=== PATIENT | female | born 1985 | race Caucasian/White ===

== ENCOUNTER 2016-05-02 05:00 | Inpatient (IN) | payer SELFPAY ==
[2016-05-02] MEDS: RINGERS SOLUTION,LACTATED 1,000 ML IV PRN ×3 (05:25→07:45)
[2016-05-02] MEDS ORDERED: OXYTOCIN 20 UNITS in RINGERS SOLUTION,LACTATED 1,000 ML IV ONE (05:32)
[2016-05-02] MEDS ORDERED: ceFAZolin SODIUM 2 GM in DEXTROSE 5 % IN WATER 100 ML IV ONE ×2 (07:00)
[2016-05-02] MEDS ORDERED: ceFAZolin SODIUM 2 GM in DEXTROSE 5 % IN WATER 50 ML IV ONE ×2 (07:30)
[2016-05-02] MEDS ORDERED: CALCIUM CARBONATE 500 MG TAB.CHEW PO PRN (09:14)
[2016-05-02] MEDS ORDERED: oxyCODONE HCL/ACETAMINOPHEN 1 TAB TABLET PO PRN (09:14)
[2016-05-02] MEDS ORDERED: ONDANSETRON HCL/PF 2 MG/ML VIAL IV PRN (09:14)
[2016-05-02] MEDS ORDERED: SIMETHICONE 80 MG TAB.CHEW PO PRN (09:14)
[2016-05-02] MEDS ORDERED: SENNOSIDES 8.6 MG TABLET PO PRN (09:14)
[2016-05-02] MEDS ORDERED: BISACODYL 10 MG SUPP.RECT RC PRN (09:14)
--- NOTE | 2016-05-02 09:17 | OR ---
Operative Report - Dictated Report Narrative: Indication: 30 year old 6 para 4 at 39-1/7 weeks with prior section desires repeat section Pre Operative Diagnosis: 39-1/7 week intrauterine , prior section 2 Post Operative Diagnosis: Same. Procedure: Repeat low transverse section. Surgeon: Giovana Pacheco DO Cartographic Engineer: none Anesthesia: Spinal, TAP block Estimated Blood Loss: 400 mL Urine Output: 525 mL clear urine Fluids Replacement: 1500 mL Drains: Diaz to gravity Surgical Complications: None Specimens: Placenta to freezer Findings: Female in cephalic presentation born at 0819 on 05/02/2018 with Apgars 9 and 9 weighing 3463 g. Nuchal cord 2. Normal uterus, tubes, ovaries Technique: The patient was taken to the operating room and placed in dorsal supine position with a left lateral tilt. After adequate spinal anesthesia, diaz catheter inserted, SCDs placed, and 2 g of Ancef given preoperatively, the abdominal cavity was entered using sharp and blunt dissection. Two rolled laps were placed in the pericolic gutters on either side of the uterus. A transverse incision was made in the lower uterine segment and extended laterally and upwardly with digital traction. Clear fluid was noted upon amniotomy. The was delivered easily. The cord was clamped and cut and was handed off to awaiting peditrician. The placenta was allowed to deliver spontaneously. The uterus was cleared of clot and debris. Uterine incision was closed with 0 Vicryl using a running stitch. A second imbricating layer was placed. Excellent hemostasis was noted. The rolled laps were removed from the abdominal cavitiy. The peritoneum was closed with a running 3- 0 Monocryl. The same suture was used to approximate the rectus and pyramidalis muscles. The fascia was closed with a running 0 Vicryl. The subcutaneous layer was closed with a running 3-0 Monocryl. The same suture was used to approximate the subdermal layer. The skin was closed with a running 4-0 Monocryl. Benzoin and steri-strips were applied. Sponge, lap, needle, and instrument count were correct x 2. Disposition: To post anesthesia care unit in good condition
[2016-05-02] MEDS: oxyCODONE HCL/ACETAMINOPHEN 1 TAB TABLET PO PRN ×3 (10:15→18:52)
[2016-05-02] MEDS: IBUPROFEN 800 MG TABLET PO PRN ×2 (10:17→17:02)
[2016-05-02] MEDS: ENOXAPARIN SODIUM 40 MG/0.4 ML SYRG SC SCH (17:03)
[2016-05-02] MEDS: DOCUSATE SODIUM 100 MG CAPSULE PO SCH (22:44)
[2016-05-03] MEDS: oxyCODONE HCL/ACETAMINOPHEN 1 TAB TABLET PO PRN ×6 (01:07→21:28)
[2016-05-03] MEDS: IBUPROFEN 800 MG TABLET PO PRN ×4 (01:07→21:27)
[2016-05-03] MEDS: FERROUS SULFATE 325 MG TABLET PO SCH (08:00)
[2016-05-03] MEDS: DOCUSATE SODIUM 100 MG CAPSULE PO SCH ×2 (08:00→21:27)
[2016-05-03] MEDS: ASCORBIC ACID 500 MG TABLET PO SCH (08:00)
[2016-05-03] MEDS: PRENATAL VIT#96/FERROUS FUM/FA 1 TAB TABLET PO SCH (08:00)
--- NOTE | 2016-05-03 12:07 | PN ---
Subjective - Date and Time Seen Date: 05/03/16 Time: 12:06 Objective - Vitals Vitals: Last Vital Signs Temp 36.8 C 05/03/16 01:55 Pulse 78 05/03/16 07:15 Resp 17 05/03/16 07:15 BP 105/67 05/03/16 07:15 Pulse Ox 97 05/03/16 07:15 Patient denies complaints. Tolerating regular diet. Ambulating without difficulty. Pain well controlled. Lochia wnl. Abdomen - soft, appropriately tender Incision - clean, dry, intact Uterus - firm, at umbilicus -1 No calf tenderness Impression: Post op day #1 s/p repeat section. Plan: Continue routine post-operative/ care Cauti Physician Documentation - Urinary Catheter Management Urethral ([place]) Date of Insertion: 05/02/16 Time of Insertion: 08:00 Date of Removal: 05/03/16 Time of Removal: 01:00
[2016-05-03] MEDS: ENOXAPARIN SODIUM 40 MG/0.4 ML SYRG SC SCH (16:45)
[2016-05-04] MEDS: ASCORBIC ACID 500 MG TABLET PO SCH (08:00)
[2016-05-04] MEDS: DOCUSATE SODIUM 100 MG CAPSULE PO SCH (08:00)
[2016-05-04] MEDS: PRENATAL VIT#96/FERROUS FUM/FA 1 TAB TABLET PO SCH (08:00)
[2016-05-04] MEDS: FERROUS SULFATE 325 MG TABLET PO SCH (08:00)
[2016-05-04] MEDS: IBUPROFEN 800 MG TABLET PO PRN ×2 (08:01→14:33)
[2016-05-04 12:08] VITALS: BP 107/63
--- NOTE | 2016-05-04 13:19 | PN ---
Subjective - Date and Time Seen Date: 05/04/16 Time: : Objective - Vitals Vitals: Last Vital Signs Temp 36.8 C 05/04/16 12:08 Pulse 75 05/04/16 12:08 Resp 16 05/04/16 12:08 BP 107/63 05/04/16 12:08 Pulse Ox 97 05/04/16 12:08 Patient denies complaints. Ambulating well. Tolerating regular diet. Pain well controlled. Lochia wnl. Abdomen - soft, appropriately tender Incision - clean, dry, intact Uterus - firm, at umbilicus -2 No calf tenderness Impression: Post op day #2 s/p repeat section. Plan: Routine discharge instructions given. Cauti Physician Documentation - Urinary Catheter Management Urethral ([place]) Date of Insertion: 05/02/16 Time of Insertion: 08:00 Date of Removal: 05/03/16 Time of Removal: 01:00
== END 2016-05-04 15:45 | disposition home or self-care (01) | DRG 766 ==
LOC: MS 05:00
PROVIDERS: ADMIT Obstetrics & Gynecology; ATTEND Obstetrics & Gynecology
PROC: 4A1HXCZ Monitoring of Products of Conception, Cardiac Rate, External Approach (ICD-10-PCS; 2016-05-02)
PROC: 10D00Z1 Extraction of Products of Conception, Low, Open Approach (ICD-10-PCS; principal; 2016-05-02 08:00)
DX: O34.211 Maternal care for low transverse scar from previous cesarean delivery (principal); O69.81X0 Labor and delivery complicated by cord around neck, without compression, not applicable or unspecified; Z3A.39 39 weeks gestation of pregnancy; Z37.0 Single live birth

== ENCOUNTER 2016-12-17 09:55 | Emergency (ER) | payer SELFPAY ==
[2016-12-17] MEDS ORDERED: IBUPROFEN 400 MG TABLET PO ONE (10:16)
[2016-12-17] MEDS ORDERED: IBUPROFEN 400 MG TABLET ONE (10:24)
[2016-12-17 10:27] VITALS: BP 103/63
--- NOTE | 2016-12-17 10:33 | ERNOTE ---
Lower Extremity HPI - Narrative Date of Service: 12/17/16 - General Lower Extremities Pain: leg: right Time Seen by Provider: 12/17/16 10:09 Source: patient Exam Limitations: no limitations - Immun/Allergies/Home Medications Allergies/Adverse Reactions: Allergies Allergy/AdvReac Type Severity Reaction Status Date / Time No Known Drug Allergies Allergy Unknown Verified 12/17/16 10:06 Home Medications: HOME MEDICATIONS NK [No Home Medication] 12/17/16 [Last Taken Unknown] - History of Present Illness Narrative: Pt. comes in with c/o falling down her steps at 0730 this morning and landing with her knees on the bottom of the stairs and her de la torre on the edge of a stair. Pt. denies any SOB, CP, NVD, fever, recent illness, but does state that her de la torre below the wound is numb and it is difficult to move her toes and she is unable to flex her ankle. Pt. denies any prehospital treatment. Review of Systems - Review of Systems Constitutional: Present: weakness - R foot. Absent: recent illness, fever, chills, fatigue EYE: Present: no symptoms reported ENT: Present: no symptoms reported Respiratory: Present: no symptoms reported. Absent: shortness of breath, cough , wheezing Cardiology: Present: no symptoms reported. Absent: chest pain, palpitations, edema Gastrointestinal/Abdominal: Present: no symptoms reported Genitourinary: Present: no symptoms reported Musculoskeletal: Present: muscle pain - R de la torre, other - unable to flex R ankle Skin: Present: other - abrasion R de la torre. Absent: rash, change in color Neurological: Present: no symptoms reported. Absent: headache, dizziness/light- headedness, numbness, tingling All Other Systems: All systems neg except as marked - Patient's Past Medical History Patient History - Medical: No pertinent hx Patient History - Cardiac/Respiratory: No pertinent hx Patient History - Cancer: No Hx of Cancer Patient History - Surgical Procedures: Patient History - Other: None - Social History Living Situations: home Psych History: No pertinent hx Alcohol Use: none Drug Use: none Physical Exam - Physical Exam General Appearance: Present: wd/wn, alert, no apparent distress Head Exam: Present: normal inspection, no evidence of injury Eye Exam: Normal inspection: bilateral, PERRL: bilateral, EOMI: bilateral Respiratory: Present: no respiratory distress, normal breath sounds, no accessory muscle use, chest nontender, lungs clear Cardiovascular/Chest: Present: regular rate, rhythm, no murmur, normal peripheral pulses Back Exam: Present: normal inspection, normal range of motion, no vertebral tenderness Extremity Exam: Present: decreased range of motion - R ankle and foot, bony tenderness - R frontal de la torre Neurological Exam: Present: alert, oriented, normal mood/affect, no motor/ sensory deficits Skin Exam: Present: normal color, warm/dry, other - abrasion R de la torre 3cm x 3cm partial thickness closed.. Absent: pallor, skin rash ED Progress - Date and Time Seen: Date and Time: 12/17/16 10:[address] Garcia and he feels that while pt. could have a tendon injury it is most likely a contusion to the soft tissue including the tendon and would like to see pt. on in the clinic. - Vital Signs Patient's Vital Signs:: I have reviewed the patient's vital signs. Vital Signs: Vital Signs 12/17/16 10:03 Temperature 36.7 C Pulse Rate 73 Respiratory 12 Rate Blood Pressure 115/60 O2 Sat by Pulse 99 Oximetry - X-Ray X-Ray #1 X-Ray: tibula/fibula Interpretation: Reviewed by me X-ray Comments: no acute osseous abnormality. - Progress/Reassessment Chief Complaint: Lower Extremity Pain/ Injury Departure Clinical Impression: Contusion of leg, right Qualifiers: Encounter type: initial encounter Qualified Code(s): S80.11XA - Contusion of right lower leg, initial encounter - Departure Disposition: Home self-care Condition: Good Instructions: Contusion, [id number] Additional Instructions: Please follow up with Orthopedics on as scheduled at 1:00pm and keep leg elevated as much as possible and may take up to 800mg Ibuprofen every 8 hours for pain.
== END 2016-12-17 11:17 | disposition home or self-care (01) ==
LOC: ER 09:55
DX: S80.11XA Contusion of right lower leg, initial encounter (principal); W10.2XXA Fall (on)(from) incline, initial encounter; Y93.9 Activity, unspecified; Y92.009 Unspecified place in unspecified non-institutional (private) residence as the place of occurrence of the external cause

== ENCOUNTER 2019-08-20 11:05 | Inpatient (IN) ==
[2019-08-20] MEDS ORDERED: RINGER'S SOLUTION,LACTATED 1,000 ML IV PRN (11:14)
[2019-08-20] MEDS ORDERED: DEXTROSE 5%-LACTATED RINGERS 1,000 ML IV PRN (11:48)
[2019-08-20] MEDS ORDERED: OXYTOCIN 20 UNITS in RINGER'S SOLUTION,LACTATED 1,000 ML IV ONE (12:25)
[2019-08-20 12:53] LABS: Cocaine Ur Negative (NEGATIVE); Urine Barbiturate Negative (NEGATIVE); Urine Benzodiazepines Negative (NEGATIVE); Urine Opiates Negative (NEGATIVE); Urine PCP Negative (NEGATIVE); Urine THC Negative (NEGATIVE)
--- NOTE | 2019-08-20 14:22 | ANES ---
Anesthesia Pre Procedure Eval Vitals/Labs: Last Vital Signs Temp 37 C 08/20/19 11:15 Pulse 79 08/20/19 11:15 Resp 16 08/20/19 11:15 BP 120/70 08/20/19 11:15 Pulse Ox 97 08/20/19 11:15 HOME MEDICATIONS aloe vera 25 mg capsule 25 mg PO DAILY PRN cap 03/12/19 [Last Taken 08/16/19] ferrous sulfate 325 mg (65 mg iron) tablet 325 mg PO DAILY #30 tab 03/12/19 [Last Taken 08/19/19] calcium carbonate 300 mg (750 mg) chewable tablet 300 mg PO DAILY PRN 06/08/19 [Last Taken Unknown] acetone (urine) test See Rx Instructions .ROUTE .MEDSUPPLY #100 ea 06/17/19 [Last Taken Unknown] blood sugar diagnostic See Rx Instructions .ROUTE .MEDSUPPLY #100 ea 06/17/19 [Last Taken Unknown] lancets 26 gauge See Rx Instructions .ROUTE .MEDSUPPLY #100 ea 06/17/19 [Last Taken Unknown] Ascorbic Acid [Vitamin C] 1,000 mg PO DAILY 08/20/19 [Last Taken 08/19/19] Vits96/Iron Fum/Folic [ S] 1 tab PO DAILY 08/20/19 [Last Taken 08/19/19] Allergies/Adverse Reactions: Allergies Allergy/AdvReac Type Severity Reaction Status Date / Time No Known Drug Allergies Allergy Unknown Verified 08/20/19 09:33 - Planned Procedure Planned Procedure: repeat Medication List Reviewed:: Yes Allergies Verified: Yes Medical History (Last Reviewed 08/20/19 @ 14:20 by Tobias French CRNA) Gestational diabetes (Acute) Advanced maternal age affecting , antepartum (Chronic) Advanced maternal age (AMA) in Onset Date: 03/12/19 Anemia Onset Date: Unknown w/pregnancies-01/2013, 01/2016, 02/2019 Varicose veins of lower extremity Onset Date: Unknown Wears glasses Onset Date: Unknown Lower leg injury Onset Date: Unknown right de la torre Ovarian cyst Onset Date: 09/21/15 Spontaneous Onset Date: Unknown Hemorrhoids Onset Date: Unknown occasional Surgical History (Last Reviewed 08/20/19 @ 14:20 by Tobias French CRNA) Previous section (Chronic) x 3 Previous section Onset Date: 12/22/10 12/22/10-arrest of dilation, 06/13/13-rpt, 05/02/16-rpt Family History (Last Reviewed 08/20/19 @ 14:20 by Tobias French CRNA) Mother Hypertension Tachycardia CVA (cerebral vascular accident) possible Grandfather Emphysema of lung Grandmother Hypertension Grandmother Diabetes Grandfather Hypertension Myocardial infarction @ age 65 - Family Anesthesia History Family History:: no untoward family reactions to anesthesia - Airway/Neck/Teeth Within Normal Limits:: Yes Teeth Condition: intact Neck Exam: full range of motion Mallampatti Score: 2 Thyromental (T-M) distance: > 6 cm Mandibulo Hyoid distance: > 3 cm - Respiratory Respiratory Physical: lungs clear Smoking Status: Former smoker Sleep Apnea currently treated: No Sleep Apnea by current assessment: No - Cardiovascular Tolerate Activity: Good Heart Sounds: S1 & S2, Regular - Gastrointestinal NPO since: MN - Anesthesia Assessment and Plan ASA Class: PS, II Anesthesia Type Plan: Spinal - Bilat TAP block for postop analgesia Planned difficult intubation/equipment available: No
[2019-08-20] MEDS ORDERED: BUPIVACAINE HCL/EPINEPHRINE 50 ML VIAL IJ ONE (14:28)
[2019-08-20] MEDS ORDERED: EPINEPHrine 1 MG/ML AMPUL ONE (14:28)
[2019-08-20] MEDS ORDERED: NORMAL SALINE 20 ML VIAL ONE (14:29)
[2019-08-20] MEDS ORDERED: ceFAZolin SODIUM 1 GM VIAL ONE (15:03)
[2019-08-20] MEDS ORDERED: ONDANSETRON HCL/PF 2 MG/ML VIAL ONE (17:11)
--- NOTE | 2019-08-20 17:54 | OR ---
Operative Report - Dictated Report Narrative: Indication: 34-year-old G7, P5 female at 38-5/7 weeks gestation with prior C- section x3 presents to labor and delivery in labor. status: Planned Pre Operative Diagnosis: 38 5/7-week intrauterine . Prior section x3. Advanced maternal age. Gestational diabetes-diet controlled. Labor. Post Operative Diagnosis: Same. Procedure: Repeat low transverse section. Abdominal scar revision - 16cm Surgeon: Giovana Pacheco DO Skip Tender: OR Staff Anesthesia: Spinal, TAP block Estimated Blood Loss: 400 mL Urine Output: 200 mL clear urine Fluids Replacement: 2000 mL of crystalloid Drains: Diaz to gravity Surgical Complications: None Specimens: Placenta to freezer Findings: Male born at 1640 on 08/20/2021 with Apgars 9 and 9, weighing 3155 g in cephalic presentation. Lower uterine segment was at least 4 mm at its thinnest portion. Mild peritoneal adhesions of bladder to uterus. Normal uterus, tubes, ovaries Technique: The patient was taken to the operating room and placed in dorsal supine position with a left lateral tilt. After adequate spinal anesthesia, diaz catheter inserted, SCDs placed, and 2 g of Ancef and 500 mg of Zithromax IV given preoperatively, the previous scar was excised in an elliptical fashion and the abdominal cavity was entered using sharp and blunt dissection. Two rolled laps were placed in the pericolic gutters on either side of the uterus. A transverse incision was made in the lower uterine segment and extended laterally and upwardly with digital traction. Clear fluid was noted upon amniotomy. The infant was delivered easily. The cord was clamped and cut and infant was handed off to awaiting dry dip worker. The placenta was allowed to deliver spontaneously. The uterus was cleared of clot and debris. Uterine incision was closed with 0 Vicryl using a running stitch. A second imbricating layer was placed. Small punctate bleeding on uterine serosal surface set defaults was controlled with the electrocautery. Excellent hemostasis was noted. The rolled laps were removed from the abdominal cavitiy. The peritoneum was closed with a running 3-0 Monocryl. The same suture was used to approximate the rectus and pyramidalis muscles. The fascia was closed with a running 0 Vicryl. The subcutaneous layer was closed with a running 3-0 Monocryl. The same suture was used to approximate the subdermal layer. The skin was closed with a running 4-0 Monocryl and Dermabond. Sponge, lap, needle, and instrument count were correct x 2. Disposition: To post anesthesia care unit in good condition History for MU History for MU Definition: * The number of deliveries resulting in a live the patient experienced prior to current hospitalization * The previous delivery of live twins or any live multiple gestation is considered one live event. *If primagravida or nulliparous is documented select zero for the number of previous live births. Live Events: Live Events: 5
[2019-08-20] MEDS ORDERED: SIMETHICONE 80 MG TAB.CHEW PO PRN (18:00)
[2019-08-20] MEDS ORDERED: SENNOSIDES 8.6 MG TABLET PO PRN (18:00)
[2019-08-20] MEDS ORDERED: ONDANSETRON HCL/PF 2 MG/ML VIAL IV PRN (18:00)
[2019-08-20] MEDS ORDERED: BISACODYL 10 MG SUPP.RECT RC PRN (18:00)
[2019-08-20] MEDS ORDERED: ALOE VERA 25 MG PO PRN (18:00)
[2019-08-20] MEDS: IBUPROFEN 800 MG TABLET PO PRN (18:19)
[2019-08-20] MEDS: oxyCODONE HCL/ACETAMINOPHEN 1 TAB TABLET PO PRN ×2 (18:19→21:19)
--- NOTE | 2019-08-20 18:22 | ANES ---
Post Anesthesia Assessment - Vital Signs Vitals: Last Vital Signs Temp 36.6 C 08/20/19 17:40 Pulse 97 08/20/19 17:55 Resp 15 08/20/19 17:55 BP 112/47 08/20/19 17:55 Pulse Ox 100 08/20/19 17:55 Airway Patency: Normal - Mental Status Level Of Consciousness: Awake - Pain Level Pain Score: 4 - N/V Assessment Nausea/Vomiting Presence: None Dehydration:: No
--- NOTE | 2019-08-20 18:22 | ANES ---
Post Anesthesia Discharge - Transfer of Care Transfer of Care handoff given to nurse: Yes - Discharge from PACU Discharge from PACU when meets criteria: Yes
--- NOTE | 2019-08-20 18:25 | ANES ---
Anesthesia Procedure Note Procedure Note: ANESTHESIA PROCEDURE NOTE Date of procedure: 08/20/2019. Time of procedure: 1740. Performed by: Gama French CRNA Endless Belt Finisher: Ila Hidalgo CST . Preprocedure diagnosis: Previous section. Post procedure diagnosis: Same. Procedure: Ultrasound-guided bilateral tap block Indications: Postoperative analgesia. Findings: Patient was placed in a supine position in the PACU. Patient's right abdominal wall was prepped with ChloraPrep. A 20-gauge 4 inch regional block needle was advanced under ultrasound guidance until tip of needle was positioned just distal to fascial layer between the internal oblique and trans-abdominus muscles. A total of 20 mL of 0.25% Marcaine with epinephrine 1-200,000 was injected with adequate spread of local anesthesia noted. Regional block needle was removed intact. Procedure was repeated on patient's left side. EBL: Minimal. Fluids: N/A. Specimen: N/A. Post procedure condition: The patient tolerated the procedure well. No complications were noted. Thank you for this consultation Gama French CRNA
[2019-08-20] MEDS ORDERED: CALCIUM CARBONATE 500 MG TAB.CHEW PO PRN (18:30)
[2019-08-20] MEDS: DOCUSATE SODIUM 100 MG CAPSULE PO SCH (21:19)
[2019-08-21] MEDS: oxyCODONE HCL/ACETAMINOPHEN 1 TAB TABLET PO PRN ×7 (00:18→21:12)
[2019-08-21] MEDS: IBUPROFEN 800 MG TABLET PO PRN ×4 (00:18→19:14)
[2019-08-21] MEDS: ENOXAPARIN SODIUM 40 MG/0.4 ML SYRG SC SCH (04:30)
[2019-08-21] MEDS ORDERED: ceFAZolin SODIUM 1 GM VIAL IV PRN (06:00)
[2019-08-21] MEDS ORDERED: AZITHROMYCIN 500 MG in DEXTROSE 5 % IN WATER 250 ML IV PRN ×2 (06:00)
[2019-08-21] MEDS: DOCUSATE SODIUM 100 MG CAPSULE PO SCH ×3 (07:00→21:12)
[2019-08-21] MEDS: PRENATAL VITS96/IRON FUM/FOLIC 1 TAB TABLET PO SCH ×2 (10:48→11:15)
[2019-08-21] MEDS: FERROUS SULFATE 325 MG TABLET PO SCH ×2 (10:48→11:15)
[2019-08-21] MEDS: ASCORBIC ACID 500 MG TABLET PO SCH ×2 (10:49→11:17)
--- NOTE | 2019-08-21 12:04 | PN ---
Subjective - Date and Time Seen Date: 08/21/19 Time: 12:01 Objective - Vitals Vitals: Last Vital Signs Temp 36.4 C 08/21/19 07:19 Pulse 65 08/21/19 07:19 Resp 18 08/21/19 07:19 BP 100/62 08/21/19 07:19 Pulse Ox 99 08/21/19 07:19 Patient denies complaints. Tolerating regular diet. Ambulating without difficulty. Pain well controlled. Breast-feeding well. lochia wnl. Abdomen - soft, appropriately tender Incision -clean, dry, intact uterus - firm, at umbilicus -1 no calf tenderness FBS 80 Impression: Post op day #1 s/p repeat section. Gestational diabetes- resolved. Advanced maternal age Plan: Continue routine post-operative/ care Cauti Physician Documentation - Urinary Catheter Management Urethral ([place]) Date of Insertion: 08/20/19 Time of Insertion: 16:25
[2019-08-22] MEDS: ENOXAPARIN SODIUM 40 MG/0.4 ML SYRG SC SCH (04:15)
[2019-08-22] MEDS: oxyCODONE HCL/ACETAMINOPHEN 1 TAB TABLET PO PRN ×5 (04:16→20:53)
[2019-08-22] MEDS: IBUPROFEN 800 MG TABLET PO PRN ×2 (04:16→17:48)
[2019-08-22] MEDS: PRENATAL VITS96/IRON FUM/FOLIC 1 TAB TABLET PO SCH ×2 (07:29→11:56)
[2019-08-22] MEDS: FERROUS SULFATE 325 MG TABLET PO SCH ×2 (07:29→11:56)
[2019-08-22] MEDS: DOCUSATE SODIUM 100 MG CAPSULE PO SCH ×3 (07:29→20:53)
[2019-08-22] MEDS: ASCORBIC ACID 500 MG TABLET PO SCH ×2 (07:31→11:56)
--- NOTE | 2019-08-22 11:49 | PN ---
Subjective - Date and Time Seen Date: 08/22/19 Time: 11:47 Objective - Vitals Vitals: Last Vital Signs Temp 36.8 C 08/22/19 06:46 Pulse 78 08/22/19 06:46 Resp 18 08/22/19 06:46 BP 93/54 08/22/19 06:46 Pulse Ox 98 08/22/19 06:46 Patient denies complaints. Ambulating well. Tolerating regular diet. Pain well controlled. Lochia wnl. Abdomen - soft, appropriately tender Incision -clean, dry, intact uterus - firm, at umbilicus -2 no calf tenderness Impression: Post op day #2 s/p repeat section. Plan: Continue routine post-operative/ care Cauti Physician Documentation - Urinary Catheter Management Urethral ([place]) Date of Insertion: 08/20/19 Time of Insertion: 16:25
[2019-08-23] MEDS: IBUPROFEN 800 MG TABLET PO PRN ×3 (00:22→14:13)
[2019-08-23] MEDS: oxyCODONE HCL/ACETAMINOPHEN 1 TAB TABLET PO PRN ×5 (00:23→14:13)
[2019-08-23] MEDS: ENOXAPARIN SODIUM 40 MG/0.4 ML SYRG SC SCH (04:59)
[2019-08-23] MEDS: FERROUS SULFATE 325 MG TABLET PO SCH ×2 (06:59→08:13)
[2019-08-23] MEDS: DOCUSATE SODIUM 100 MG CAPSULE PO SCH ×2 (06:59→08:12)
[2019-08-23] MEDS: PRENATAL VITS96/IRON FUM/FOLIC 1 TAB TABLET PO SCH ×2 (06:59→08:13)
[2019-08-23] MEDS: ASCORBIC ACID 500 MG TABLET PO SCH ×2 (06:59→08:13)
[2019-08-23 07:25] VITALS: BP 109/54
--- NOTE | 2019-08-23 11:53 | PN ---
Subjective - Date and Time Seen Date: 08/23/19 Time: 11:43 Objective - Vitals Vitals: Last Vital Signs Temp 36.5 C 08/23/19 07:24 Pulse 62 08/23/19 07:24 Resp 16 08/23/19 07:24 BP 109/54 08/23/19 07:24 Pulse Ox 98 08/23/19 07:24 Patient denies complaints. Ambulating without difficulty. Tolerating regular diet. Pain well controlled. Lochia wnl. Abdomen - soft, appropriately tender Incision -clean, dry, intact uterus - firm, at umbilicus -3 no calf tenderness Impression: Post op day #3 s/p repeat section. Advanced maternal age. Gestational diabetes-resolved Plan: Routine discharge instructions. Cauti Physician Documentation - Urinary Catheter Management Urethral ([place]) Date of Insertion: 08/20/19 Time of Insertion: 16:25
== END 2019-08-23 15:59 | disposition home or self-care (01) | DRG 788 ==
LOC: OBCLINIC 11:05 → OB 11:51 → EDSTATUS 08-26 08:00
PROVIDERS: ADMIT Obstetrics & Gynecology; ATTEND Obstetrics & Gynecology
CPT/HCPCS: 59025; 80307; J2405